=== PATIENT | female | born 1960 | race Caucasian/White ===

== ENCOUNTER 2024-12-20 21:17 | Emergency (ER) | payer OTHER ==
[~2024-12-20] VITALS: Ht 154.9 cm; Wt 68.2 kg
[2024-12-20 21:20] VITALS: BP 182/90; RESP 18; TEMP 98.1; O2SAT 100
[2024-12-20 21:26] VITALS: PULSE 64
[2024-12-20 21:38] LABS: Mean Corpuscular Hemoglobin 22.3 pg (28.0-32.0)
[2024-12-20 21:40] LABS: Hematocrit 35.5 % (36.0-46.0); Hemoglobin 11.6 g/dL (12.2-16.2); Mean Corpuscular Volume 68.4 fL (80.0-100.0); Nucleated Red Blood Cells % 0.0 %
--- NOTE | 2024-12-20 21:41 | ED.PDOC ---
HPI Comments 64 year old female with a Hx of TIA, DM, HTN, and a recent bilateral eye lid surgery presents to the ED for the c/c of Sharp Left Chest pain w/ associated radiating Neck, and left shoulder pain. Pt states that her pain started approx 45mins before arrival to the ED, and states that she took Aspirin, and Motrin, with no alleviating factors. Pts BP was noted to have been 182/90 upon triage assessment. No other associated symptoms, modifiers, recent injuries or sick contacts present at this time. Time Seen by MD: 21:36 Primary Care Provider: DAGOBERTO HAVE ONE Reviewed Notes: Nurses Notes, Medications, Allergies Allergies: Coded Allergies: NO KNOWN ALLERGIES (Unverified , 01/11/15) Information Source: Patient Mode of Arrival: Ambulatory Severity: Moderate Timing: Minutes Duration: Since onset, Minutes Prehospital treatment: None Location: Chest (L) Radiation: Neck, Shoulder (L) Quality: Sharp Onset: At Rest Cardiac Risk Factors: HTN, Diabetes PE Risk Factors: None History of: Aspirin Associated Signs and Symptoms: None Past Medical History PAST MEDICAL HISTORY: DM, HTN Surgical History: Appendectomy, , Hernia Repair, Hysterectomy Family History Family History: Unknown Social History Smoker: Non-Smoker Alcohol: Denies ETOH Use Drugs: Denies Drug Use Lives In: Home Constitutional: denies: chills, diaphoresis, fatigue, fever, malaise, sweats, weakness, others EENTM: denies: blurred vision, double vision, ear bleeding, ear discharge, ear drainage, ear pain, ear ringing, eye pain, eye redness, hearing loss, mouth pain, mouth swelling, nasal discharge, nose bleeding, nose congestion, nose pain, photophobia, tearing, throat pain, throat swelling, voice changes, others Respiratory: denies: cough, hemoptysis, orthopnea, SOB at rest, shortness of breath, SOB with excertion, stridor, wheezing, others Cardiovascular: reports: chest pain; denies: dizzy spells, diaphoresis, Dyspnea on exertion, edema, irregular heart beat, left arm pain, lightheadedness, palpitations, PND, syncope, others Gastrointestinal: reports: nausea; denies: abdomen distended, abdominal pain, blood streaked bowels, constipated, diarrhea, dysphagia, difficulty swallowing, hematemesis, melena, poor appetite, poor fluid intake, rectal bleeding, rectal pain, vomiting, others Genitourinary: denies: abnormal vagina bleeding, burning, dyspareunia, dysuria, flank pain, frequency, hematuria, incontinence, pain, , vagina discharge, urgency, others Neurological: denies: dizziness, fainting, headache, left sided numbness, left sided weakness, numbness, paresthesia, pre-existing deficit, right sided numbness, right sided weakness, seizure, speech problems, tingling, tremors, weakness, others Musculoskeletal: reports: neck pain; denies: back pain, gout, joint pain, joint swelling, muscle pain, muscle stiffness, others Integumetry: denies: bruises, change in color, change in hair/nails, dryness, laceration, lesions, lumps, rash, wounds, others Allergic/Immunocompromised: denies: Difficulty Healing, Frequent Infections, Hives, Itching, others Hematologic/Lymphatic: denies: anemia, blood clots, easy bleeding, easy bruising, swollen glands, others Endocrine: denies: excessive hunger, excessive sweating, excessive thirst, excessive urination, flushing, intolerance to cold, intolerance to heat, unexplained weight gain, unexplained weight loss, others Psychiatric: denies: anxiety, bipolar disorder, depression, hopeless, panic disorder, schizophrenia, sleepless, suicidal, others All Other Systems: Reviewed and Negative Physical Exam General Appearance: Moderate Distress, Normal HEENT: Normal ENT Inspection, Pharynx Normal, TMs Normal Neck: Full Range of Motion, Non-Tender, Normal, Normal Inspection Respiratory: Chest Non-Tender, Lungs Clear, No Accessory Muscle Use, No Respiratory Distress, Normal Breath Sounds Cardiovascular: No Edema, No JVD, No Murmur, No Gallop, Normal Peripheral Pulses, Tachycardia Breast Exam: Deferred Gastrointestinal: Non Tender, No Pulsatile Mass, Normal Bowel Sounds, Soft Genitalia: Deferred Pelvic: Deferred Rectal: Deferred Extremities: No calf tenderness, Normal capillary refill, Normal inspection, Normal range of motion, Non-tender, No pedal edema Musculoskeletal : Apperance: Normal Neurologic: Alert, No Motor Deficits, Normal Affect, Normal Mood, No Sensory Deficits Cerebellar Function: Normal Reflexes: Normal Skin: Dry, Normal Color, Warm Lymphatic: No Adenopathy Was a procedure done? Was a procedure done?: No CP Differential Dx Differential Diagnosis: A-fib, A-Flutter, Angina, Anxiety / Panic Attack, Electrolyte Disorder, Pulmonary Embolus, Sinus Tachycardia Differential Diagnosis: HTN Essential, HTN Accelerated, HTN Encephalopathy, Medical NonCompliance Differential Diagnosis: Angina, Chest Wall Pain, Cholelithiasis, Costochondritis, Esophageal reflux/spasm, Gastritis, Pericarditis, Pneumonia, Pneumothorax, Pulmonary Embolus X-Ray, Labs, Meds, VS Vital Signs Date Time Temp Pulse Resp B/P (MAP) Pulse Ox O2 Delivery O2 Flow Rate FiO2 12/20/24 21:26 64 12/20/24 21:20 100 Room Air* 0 21 12/20/24 21:20 98.1 61 18 182/90 (120) 100 98.1 Lab Test 12/20/24 21:22 Range/Units White Blood Count 7.2 4.4-10.8 10^3/uL Red Blood Count 5.19 4.0-5.20 10^6/uL Hemoglobin 11.6 L 12.2-16.2 g/dL Hematocrit 35.5 L 36.0-46.0 % Mean Corpuscular Volume 68.4 L 80.0-100.0 fL Mean Corpuscular Hemoglobin 22.3 L 28.0-32.0 pg Mean Corpuscular Hemoglobin Concent 32.6 32.0-36.0 g/dL Red Cell Distribution Width 15.9 H 11.8-14.3 % Platelet Count 332 140-450 10^3/uL Mean Platelet Volume 8.0 6.9-10.8 fL Neutrophils (%) (Auto) 70.9 37.0-80.0 % Lymphocytes (%) (Auto) 20.4 10.0-50.0 % Monocytes (%) (Auto) 8.0 0.0-12.0 % Eosinophils (%) (Auto) 0.1 0.0-7.0 % Basophils (%) (Auto) 0.6 0.0-2.0 % Neutrophils # (Auto) 5.1 1.6-8.6 10 ^3/uL Lymphocytes # (Auto) 1.5 0.4-5.4 10 ^3/uL Monocytes # (Auto) 0.6 0-1.3 10 ^3/uL Eosinophils # (Auto) 0 0-0.8 10 ^3/uL Basophils # (Auto) 0 0-0.2 10 ^3/uL Nucleated Red Blood Cells 0.0 % Sodium Level 138 136-145 mmol/L Potassium Level 4.0 3.5-5.1 mmol/L Chloride Level 101 98-107 mmol/L Carbon Dioxide Level 26 20-31 mmol/L Anion Gap 11 5-15 Blood Urea Nitrogen 12 9-23 mg/dL Creatinine 0.98 0.550-1.02 mg/dL Glomerular Filtration Rate Calc 64 >90 mL/min BUN/Creatinine Ratio 12.2 10.0-20.0 Serum Glucose 182 H 74-106 mg/dL Calcium Level 10.1 8.7-10.4 mg/dL Total Bilirubin 0.6 0.2-1.0 mg/dL Aspartate Amino Transferase (AST) 25 13-40 U/L Alanine Aminotransferase (ALT) 13 7-40 U/L Alkaline Phosphatase 77 46-116 U/L Troponin I High Sensitivity 3 L </=34 ng/L Total Protein 7.2 5.7-8.2 g/dL Albumin 4.7 3.2-4.8 g/dL PATIENT: MONSE TEJEDA ACCT: [id number] UNIT: [id number] : 1960 LOC: ER ROOM / BED: / AGE / SEX: 64 / F ADM STATUS: REG ER SERVICE 23 ORDERING PHYSICIAN: GREG ROBERTS MD PROCEDURE(s): CXR1 - CHEST XRAY 1 VIEW REASON: chest pain ORDER NUMBER(s): [id number], ACCESSION NUMBER(s): [id number] CHEST RADIOGRAPH Indication: chest pain Technique: Single frontal view of the chest was obtained COMPARISON: None FINDINGS: Lines and Tubes: None Lungs: Clear. Pleura: No effusion. No pneumothorax. Cardiomediastinal contours: Unremarkable Bones: Unremarkable IMPRESSION: No abnormality demonstrated. Time of 1ST Reevaluation: 22:07 Reevaluation 1ST: Unchanged Patient Education/Counseling: Diagnosis, Treatment, Need For Follow Up Family Education/Counseling: No Family Present SEPSIS Sepsis Screen Physician Orders Troponin-I Hs (12/21/24 00:00) Troponin-I Hs (12/21/24 00:24) Chest Xray 1 View (7/24/25 21:24) Vital Signs Date Time Temp Pulse Resp B/P (MAP) Pulse Ox O2 Delivery O2 Flow Rate FiO2 12/20/24 21:26 64 12/20/24 21:20 100 Room Air* 0 21 12/20/24 21:20 98.1 61 18 182/90 (120) 100 98.1 Laboratory Tests Test 12/20/24 21:22 White Blood Count 7.2 10^3/uL (4.4-10.8) Departure 1 Departure Time of Disposition: 00:09 Impression: Primary Impression: Acute coronary syndrome Disposition: 02 SHORT TERM HOSPITAL Admit to: Tele Condition: Guarded Discharged With: Self Comments Left-Sided Chest Pain After Eyelid Surgery Chief Complaint: Left-sided parasternal chest pain radiating to neck and left shoulder History of Present Illness: Patient is a 64-year-old female with a history of type 2 diabetes, hypertension, and previous TIAs who presents to the ED with left-sided parasternal chest pain radiating to her neck and left shoulder. Symptoms began approximately 2 hours ago following eyelid surgery performed by ophthalmology earlier today. The patient reports no prior similar episodes. Given her risk factors and presentation, there is concern for possible acute coronary syndrome. Review of Systems: Constitutional: No fever, chills, or fatigue reported. Cardiovascular: Positive for chest pain as described in HPI. No palpitations, orthopnea, or peripheral edema. Respiratory: No shortness of breath, cough, or wheezing. HEENT: Erythema noted to eyelids post-surgical procedure. Remainder of systems: Noncontributory or unable to assess from available information. Medications: Home medications not specified in director center. Medications administered in ED: - Aspirin (dose not specified) Allergies: No known allergies documented in director center. Past Medical History: 1. Type 2 Diabetes Mellitus 2. Hypertension 3. Previous Transient Ischemic Attacks (TIAs) Past Surgical History: 1. Eyelid surgery performed earlier today (specific procedure not detailed) 2. Other surgical history not documented in director center Physical Exam: General: Not documented in director center. HEENT: Erythema noted to eyelids, consistent with recent surgical procedure. Cardiovascular: Not specifically documented, but noted as 'otherwise, her exam is unremarkable'. Respiratory: Not specifically documented, but noted as 'otherwise, her exam is unremarkable'. Abdomen: Not specifically documented, but noted as 'otherwise, her exam is un remarkable'. Extremities: Not specifically documented, but noted as 'otherwise, her exam is unremarkable'. Neurological: Not specifically documented, but noted as 'otherwise, her exam is unremarkable'. Lab Results: Troponin: 3 ng/L (normal) Blood glucose: 182 mg/dL (elevated) Other laboratory studies: Unremarkable per director center Imaging and Other Relevant Results: Chest X-ray: No acute pathology Medical Decision Making: Summary Statement: 64-year-old female with multiple cardiovascular risk factors presenting with acute onset chest pain following eyelid surgery, requiring further cardiac evaluation despite initial negative troponin. Problem List: 1. Acute chest pain, 2. Type 2 diabetes mellitus with hyperglycemia, 3. Hypertension, 4. History of TIAs, 5. Post-eyelid surgery status Differential Diagnosis: 1. Acute coronary syndrome, 2. Musculoskeletal chest pain related to positioning during surgery, 3. Anxiety/stress-related chest pain, 4. Referred pain from surgical site, 5. Pulmonary embolism, 6. Aortic dissection ED Course: Patient presented with chest pain following eyelid surgery. Initial workup included troponin, basic labs, and chest X-ray. Despite normal initial troponin, given patient's risk factors and presentation, concern for ACS db ined high. Aspirin administered. Contacted [place] transfer center and arranged transfer for admission and cardiac workup. Transfer authorized by Dr. Frias (authorization #[id number]). Assessment and Plan: 1. Chest Pain: - Concerning for possible acute coronary syndrome given patient's age, risk factors (diabetes, hypertension, previous TIAs), and presentation - Initial troponin normal, but early presentation cannot rule out evolving cardiac event - Administered aspirin for antiplatelet effect - Transfer arranged to [facility] for admission and comprehensive cardiac workup 2. Type 2 Diabetes Mellitus: - Currently hyperglycemic with blood glucose of 182 mg/dL - Will need continued monitoring during cardiac evaluation - Home diabetes medications to be reviewed upon transfer 3. Hypertension: - Chronic condition requiring continued management - Blood pressure management important in setting of possible cardiac event 4. Post-eyelid Surgery Status: - Erythema noted to eyelids, appears to be expected post-surgical finding - No signs of infection or other complications from recent procedure 5. Disposition: - Transfer to [facility] [place] facility for admission and cardiac workup - Transfer coordinated with Dr. Frias - [facility] authorization number: [id number] Additional Notes: Patient transferred to [facility] for cardiac workup Billing Information: ICD-10: R07.9 - Chest pain, unspecified ICD-10: E11.9 - Type 2 diabetes mellitus without complications ICD-10: I10 - Essential (primary) hypertension ICD-10: G45.9 - Transient cerebral ischemic attack, unspecified Critical Care Note Critical Care Time?: Yes (35 min-critical care time only) Critical care comment: Differential diagnosis includes but not limited to: angina, myocardial infarc tion, pulmonary embolus, pleurisy, musculoskeletal etiology and others Stability Stability form required: No Heart Score Heart Score: Heart Score Response (Comments) Value History Moderate Suspicious 1 EKG Repolarization Disturb 1 Age 45-64 1 Risk Factors >3 or Hx ASHD 2 Troponin Normal limit 0 Total 5 I personally scribed for GREG ROBERTS MD ([email or web address]) on 12/20/24 at 21:41. Electronically submitted by Marshall Mendoza ([email or web address]). I personally scribed for GREG ROBERTS MD ([email or web address]) on 12/20/24 at 22:37. Electronically submitted by Marshall Mendoza ([email or web address]). GREG ROBERTS MD Dec 20, 2024 21:41
--- NOTE | 2024-12-20 21:45 | ECG ---
[facility] Test Date: 2024-12-20 Test Time: 21:26:10 Pat Name: MONSE TEJEDA Department: ED Room: Gender: F [employer] Own[employer]: AMARIS : 1960 Requested By: GREG ROBERTS Order Number: [id number] Reading MD: Measurements Intervals [place] Rate: 64 P: 73 RI: 132 QRS: 72 QRSD: 98 T: 63 QT: 427 QTc: 441 Interpretive Statements Sinus rhythm Please click the below link to view image of tracing.
[2024-12-20 21:53] LABS: Alanine Aminotransferase 13 U/L (7-40); Albumin 4.7 g/dL (3.2-4.8); Alkaline Phosphatase 77 U/L (46-116); Anion Gap 11 (5-15); BUN/Creatinine Ratio 12.2 (10.0-20.0); Bilirubin, Total 0.6 mg/dL (0.2-1.0); Blood Urea Nitrogen 12 mg/dL (9-23); Calcium 10.1 mg/dL (8.7-10.4); Carbon Dioxide 26 mmol/L (20-31); Chloride 101 mmol/L (98-107); Potassium 4.0 mmol/L (3.5-5.1); Sodium 138 mmol/L (136-145); Total Protein 7.2 g/dL (5.7-8.2)
[2024-12-20 21:56] LABS: Glucose 182 mg/dL (74-106)
--- NOTE | 2024-12-20 22:30 | DVH ---
CHEST RADIOGRAPH Indication: chest pain Technique: Single frontal view of the chest was obtained COMPARISON: None FINDINGS: Lines and Tubes: None Lungs: Clear. Pleura: No effusion. No pneumothorax. Cardiomediastinal contours: Unremarkable Bones: Unremarkable IMPRESSION: No abnormality demonstrated.
== END 2024-12-21 00:28 | disposition left against medical advice (07) ==
LOC: ER 21:17
DX: I24.9 Acute ischemic heart disease, unspecified (principal); E11.9 Type 2 diabetes mellitus without complications; I10 Essential (primary) hypertension; Z90.710 Acquired absence of both cervix and uterus; Z90.49 Acquired absence of other specified parts of digestive tract; Z98.890 Other specified postprocedural states; Z86.73 Personal history of transient ischemic attack (TIA), and cerebral infarction without residual deficits; Z79.899 Other long term (current) drug therapy
CPT/HCPCS: 36415; 71045; 80053; 82947; 84484; 85025; 93005